=== PATIENT | male | born 1950 | race African-American/Black ===

== ENCOUNTER 2025-04-30 20:47 | Emergency (ER) | payer BC, MEDICAID ==
[~2025-04-30] VITALS: Ht 175.3 cm; Wt 77.0 kg
[~2025-04-30 20:47] MED LIST: METF-414 PO
[2025-04-30 21:17] VITALS: O2SAT 99
[2025-04-30] MEDS: SODIUM CHLORIDE 0.9% 1,000 ML IV ONE (22:34)
[2025-04-30 22:44] LABS: BASOPHILS % 0.9 % (0.0-2.0); EOSINOPHILS % 2.5 % (0.0-5.0); HEMATOCRIT. 38.6 % (42.0-52.0); HEMOGLOBIN. 13.0 g/dL (14.0-18.0); LYMPHOCYTES % 21.4 % (20.0-50.0); MEAN PLATELET VOLUME 7.5 fl (7.4-10.4); MONOCYTES % 6.7 % (2.0-8.0); NEUTROPHILS % 68.5 % (40.0-76.0); PLATELET 276 x1000/uL (130-400); RED BLOOD CELL COUNT 4.23 mill/uL (4.7-6.1); RED CELL DISTRIBUTION WIDTH 15.3 % (11.6-14.6)
[2025-04-30 23:01] LABS: TROPONIN I HIGH SENSITIVITY 19 ng/L (3.0-53)
[2025-04-30 23:02] LABS: CREATININE 0.8 mg/dL (0.6-1.3); UREA NITROGEN BLOOD 8 mg/dL (9-23)
[2025-04-30 23:10] LABS: *AMPHETAMINES SCREEN URINE NEGATIVE (NEGATIVE); *BARBITURATES SCREEN URINE NEGATIVE (NEGATIVE); *BENZODIAZEPINES SCREEN URINE NEGATIVE (NEGATIVE); *COCAINE SCREEN URINE PRESUMPTIVE POSITIVE (NEGATIVE); CANNABINOID URINE SCREEN NEGATIVE (NEGATIVE); ECSTASY MDMA SCREEN URINE NEGATIVE (NEGATIVE); METHADONE URINE SCREEN NEGATIVE (NEGATIVE); OPIATES URINE SCREEN NEGATIVE (NEGATIVE); PHENCYCLIDINE URINE SCREEN NEGATIVE (NEGATIVE)
[2025-04-30 23:29] VITALS: BP 130/72; PULSE 82; RESP 16; TEMP 36.9; O2SAT 99
[2025-04-30 23:33] LABS: ASPARTATE AMINOTRANSFERASE 18 IU/L (<34); BILIRUBIN DIRECT 0.1 mg/dL (<=3.0); BILIRUBIN TOTAL 0.6 mg/dL (0.1-1.0); PROTEIN TOTAL 8.2 g/dL (6.0-8.3); T4 FREE 1.18 ng/dL (0.89-1.76)
== END 2025-04-30 23:29 | disposition home or self-care (01) ==
LOC: ER 20:47 → EDBEDREQ 21:50 → ER 23:29 → CMPBEDREQ 05-01 07:18
DX: R00.2 Palpitations (principal); F14.90 Cocaine use, unspecified, uncomplicated; E11.9 Type 2 diabetes mellitus without complications; R06.02 Shortness of breath; Z79.899 Other long term (current) drug therapy; Z98.890 Other specified postprocedural states
CPT/HCPCS: 99285; 96360; 71045; 80076; 80305; 80048; 83880; 84439; 83735; 84443; 85025; 84484; 36415; 93005; J7030